=== PATIENT | male | born 1955 | race Asian ===

== ENCOUNTER 2022-04-12 12:58 | Emergency (ER) | payer OTHER ==
[~2022-04-12] VITALS: Ht 147.3 cm; Wt 50.0 kg
[2022-04-12] MEDS ORDERED: CARV6 PO (13:10)
[2022-04-12] MEDS ORDERED: AMLO-258 PO (13:10)
[2022-04-12] MEDS ORDERED: TRAZ-257 PO (13:10)
[2022-04-12] MEDS ORDERED: ASPI-1450 PO (13:10)
[2022-04-12] MEDS ORDERED: SIMV-259 PO (13:10)
[2022-04-12] MEDS ORDERED: MEGE40TA33 PO (13:10)
[2022-04-12] MEDS ORDERED: CHOL500013 PO (13:10)
[2022-04-12 13:52] LABS: BASOPHILS % (AUTO) 0.3 % (0.0-2.0); EOSINOPHILS % (AUTO) 2.3 % (1.0-6.0); HEMATOCRIT 43.4 % (41-53); HEMOGLOBIN 14.2 g/dL (13.5-17.5); LYMPHOCYTES # (AUTO) 1.5 K/uL (1.0-4.8); LYMPHOCYTES % (AUTO) 37.2 % (22.0-44.0); MEAN CORPUSCULAR HEMOGLOBIN 31.5 pg (26.0-34.0); MEAN CORPUSCULAR HGB CONC 32.7 G/dL (31.0-37.0); MEAN CORPUSCULAR VOLUME 96 fL (80-100); MONOCYTES # (AUTO) 0.3 K/uL (0.1-1.0); MONOCYTES % (AUTO) 6.8 % (2.0-9.0); NEUTROPHILS # (AUTO) 2.1 K/uL (1.8-7.7); NEUTROPHILS % (AUTO) 53.4 % (40.0-70.0); PLATELET COUNT (AUTO) 193 K/uL (150-450); RED CELL DISTRIBUTION WIDTH 13.8 % (11.5-14.5)
[2022-04-12 14:09] LABS: ANION GAP 5 mmol/L (8-16); CALCIUM, TOTAL 9.1 mg/dL (8.8-10.5); CARBON DIOXIDE 28 mmol/L (22-29); CHLORIDE 105 mmol/L (98-107); GLOMERULAR FILTR. RATE CALC > 60 mL/min (>60); GLUCOSE,RANDOM 97 mg/dL (70-110); POTASSIUM 3.9 mmol/L (3.5-5.1); SODIUM SERUM 138 mmol/L (136-145); UREA NITROGEN, BLOOD 16 mg/dL (7-18)
[2022-04-12 14:24] LABS: B-TYPE NATRIURETIC PEPTIDE 35 pg/mL (0-100)
[2022-04-12 14:39] LABS: ALANINE AMINOTRANSFERASE 33 U/L (12-78); ALKALINE PHOSPHATASE 79 U/L (46-116); ASPARTATE AMINOTRANSFERASE 21 U/L (15-37); BILIRUBIN,TOTAL 0.9 mg/dL (0.1-1.0); CREATINE KINASE, TOTAL ONLY 168 U/L (39-308); TOTAL PROTEIN, SERUM 8.3 g/dL (6.4-8.2)
[2022-04-12] MEDS ORDERED: ACETAMINOPHEN 325 MG TABLET PO ONE (16:00)
[2022-04-12] MEDS ORDERED: CARV3 PO (16:03)
[2022-04-12] MEDS ORDERED: LISI20TA24 PO (16:03)
[2022-04-12] MEDS ORDERED: ASPI-1444 PO (16:03)
[2022-04-12] MEDS ORDERED: AmLODIPine BESYLATE 5 MG TABLET PO ONE (16:15)
[2022-04-12 17:28] LABS: APPEARANCE,URINE CLEAR (CLEAR); BILIRUBIN,URINE NEGATIVE (NEGATIVE); GLUCOSE, URINE (UA) NEGATIVE (NEGATIVE); KETONES,URINE NEGATIVE (NEGATIVE); LEUKOCYTE ESTERASE ,URINE NEGATIVE (NEGATIVE); NITRATE,URINE NEGATIVE (NEGATIVE); OCCULT BLOOD,URINE NEGATIVE (NEGATIVE); PROTEIN,URINE NEGATIVE (NEGATIVE); SPECIFIC GRAVITIY, URINE 1.014 (1.003-1.030); UROBILINOGEN,URINE <=1.0 mg/dL (<=1.0)
[2022-04-12 18:03] VITALS: BP 151/97
[2022-04-12] MEDS ORDERED: AMLO-257 PO (18:19)
== END 2022-04-12 18:30 | disposition home or self-care (01) ==
LOC: EMS 13:03
DX: I10 Essential (primary) hypertension (principal); R42 Dizziness and giddiness; E78.00 Pure hypercholesterolemia, unspecified
CPT/HCPCS: 70450; 71045; 80053; 81003; 82550; 83880; 84484; 85025; 93005; 99285; 36415-L1; 36415-TC

== ENCOUNTER 2023-04-08 17:47 | Inpatient (IN) | payer MEDICAID, OTHER ==
[~2023-04-08] VITALS: Ht 153.7 cm; Wt 50.2 kg
[~2023-04-08 17:47] MED LIST: AMLO-257 PO; AMLO-258 PO; ASPI-1444 PO; CARV3 PO; CHOL500013 PO; LISI20TA24 PO; MEGE40TA33 PO; SIMV-259 PO; TRAZ-257 PO
[2023-04-08 19:07] LABS: BASOPHILS % (AUTO) 0.9 % (0.0-2.0); EOSINOPHILS % (AUTO) 4.2 % (1.0-6.0); HEMOGLOBIN 11.9 g/dL (13.5-17.5); LYMPHOCYTES % (AUTO) 22.2 % (22.0-44.0); MEAN CORPUSCULAR HEMOGLOBIN 31.7 pg (26.0-34.0); MEAN CORPUSCULAR HGB CONC 34.2 G/dL (31.0-37.0); MEAN CORPUSCULAR VOLUME 93 fL (80-100); MONOCYTES # (AUTO) 0.4 K/uL (0.1-1.0); NEUTROPHILS # (AUTO) 2.9 K/uL (1.8-7.7); NEUTROPHILS % (AUTO) 63.7 % (40.0-70.0); PLATELET COUNT (AUTO) 185 K/uL (150-450); RED BLOOD CELL COUNT(AUTO) 3.76 MIL/uL (4.50-5.90); RED CELL DISTRIBUTION WIDTH 13.1 % (11.5-14.5); WHITE BLOOD COUNT (AUTO) 4.6 K/uL (4.5-11.0)
[2023-04-08 19:16] LABS: ANION GAP 8 mmol/L (8-16); CALCIUM, TOTAL 8.5 mg/dL (8.8-10.5); CARBON DIOXIDE 26 mmol/L (22-29); CHLORIDE 107 mmol/L (98-107); CREATININE 0.82 mg/dL (0.60-1.30); GLOMERULAR FILTR. RATE CALC > 60 mL/min (>60); GLUCOSE,RANDOM 107 mg/dL (70-110); POTASSIUM 3.7 mmol/L (3.5-5.1); SODIUM SERUM 141 mmol/L (136-145); UREA NITROGEN, BLOOD 13 mg/dL (7-18)
[2023-04-08 19:20] LABS: PROTHROMBIN TIME 10.7 SEC (9.4-11.6)
[2023-04-08 19:24] LABS: TROPONIN I-HIGH SENSITIVITY 12 ng/L (<76)
[2023-04-08 19:27] LABS: ALANINE AMINOTRANSFERASE 31 U/L (12-78); ALBUMIN 3.4 g/dL (3.4-5.0); ALKALINE PHOSPHATASE 101 U/L (46-116); ASPARTATE AMINOTRANSFERASE 30 U/L (15-37); BILIRUBIN,TOTAL 0.6 mg/dL (0.1-1.0); CREATINE KINASE, TOTAL ONLY 708 U/L (39-308); TOTAL PROTEIN, SERUM 6.6 g/dL (6.4-8.2)
[2023-04-08 19:35] LABS: B-TYPE NATRIURETIC PEPTIDE 17 pg/mL (0-100)
[2023-04-08 21:32] LABS: COVID AG,FIA SOURCE NASAL SWAB
[2023-04-08 21:34] LABS: SARS-COV2 (COVID) ANTIGEN,FIA Negative (Negative)
[2023-04-09] MEDS ORDERED: LevETIRAcetam 1,000 MG in DEXTROSE 5%-WATER 100 ML IV ONE (00:15)
[2023-04-09] MEDS ORDERED: MANNITOL 25%-12.5 GM/50 ML VIAL IVP ONE (01:00)
[2023-04-09] MEDS ORDERED: ONDANSETRON HCL 4 MG/2 ML VIAL IVP PRN (01:00)
[2023-04-09] MEDS ORDERED: DEXAMETHASONE SOD PHOS 4 MG/ML 5 ML VIAL IVP ONE (01:00)
[2023-04-09] MEDS ORDERED: HALOPERIDOL LACTATE 5 MG/ML VIAL IM ONE ×2 (06:15→21:15)
[2023-04-09] MEDS: DOCUSATE SODIUM 100 MG CAPSULE PO SCH ×2 (08:25→20:17)
[2023-04-09] MEDS ORDERED: SODIUM CHLORIDE 0.9% 1,000 ML IV ONE (08:30)
[2023-04-09] MEDS: FAMOTIDINE 20 MG/2 ML VIAL IVP SCH ×2 (11:47→20:18)
[2023-04-09] MEDS ORDERED: ESCI-8 PO (15:51)
[2023-04-09 16:00] VITALS: BP 118/83; PULSE 85; RESP 14; TEMP 98.2
[2023-04-09] MEDS ORDERED: SODIUM CHLORIDE 0.9% 250 ML IV ONE (16:11)
[2023-04-09] MEDS: LevETIRAcetam 500 MG in DEXTROSE 5%-WATER 100 ML IV SCH (16:23)
[2023-04-09 17:36] LABS: INR 1.1 (0.9-1.1); PROTHROMBIN TIME 11.4 SEC (9.4-11.6)
[2023-04-09 20:00] VITALS: BP 141/80; PULSE 88; RESP 20; TEMP 98.4
[2023-04-09] MEDS: ACETAMINOPHEN 325 MG TABLET PO PRN (20:17)
[2023-04-09] MEDS ORDERED: CHLORHEXIDINE GLUCONATE 2% TOWELETTE [2'S/6'S] TP SCH (22:00)
[2023-04-10] VITALS: BP 129/86; PULSE 77; RESP 13; TEMP 98.5
[2023-04-10] MEDS: LevETIRAcetam 500 MG in DEXTROSE 5%-WATER 100 ML IV SCH ×2 (00:36→13:10)
[2023-04-10 04:00] VITALS: BP 138/99; PULSE 86; RESP 19; TEMP 98
[2023-04-10 06:47] LABS: BASOPHILS % (AUTO) 0.3 % (0.0-2.0); EOSINOPHILS % (AUTO) 1.9 % (1.0-6.0); HEMATOCRIT 33.1 % (41-53); HEMOGLOBIN 11.6 g/dL (13.5-17.5); LYMPHOCYTES # (AUTO) 1.5 K/uL (1.0-4.8); LYMPHOCYTES % (AUTO) 37.1 % (22.0-44.0); MEAN CORPUSCULAR HEMOGLOBIN 32.5 pg (26.0-34.0); MEAN CORPUSCULAR VOLUME 93 fL (80-100); MONOCYTES # (AUTO) 0.3 K/uL (0.1-1.0); MONOCYTES % (AUTO) 8.2 % (2.0-9.0); NEUTROPHILS # (AUTO) 2.1 K/uL (1.8-7.7); NEUTROPHILS % (AUTO) 52.5 % (40.0-70.0); PLATELET COUNT (AUTO) 184 K/uL (150-450); RED BLOOD CELL COUNT(AUTO) 3.57 MIL/uL (4.50-5.90); RED CELL DISTRIBUTION WIDTH 13.3 % (11.5-14.5)
[2023-04-10 07:02] LABS: ANION GAP 10 mmol/L (8-16); CALCIUM, TOTAL 8.3 mg/dL (8.8-10.5); CARBON DIOXIDE 23 mmol/L (22-29); CHLORIDE 107 mmol/L (98-107); CREATININE 0.78 mg/dL (0.60-1.30); GLOMERULAR FILTR. RATE CALC > 60 mL/min (>60); GLUCOSE,RANDOM 83 mg/dL (70-110); POTASSIUM 3.3 mmol/L (3.5-5.1); SODIUM SERUM 140 mmol/L (136-145); UREA NITROGEN, BLOOD 11 mg/dL (7-18)
[2023-04-10 08:00] VITALS: BP 148/84; PULSE 72; RESP 12; TEMP 98.8
[2023-04-10] MEDS ORDERED: POTASSIUM CHL 10 MEQ/WATER 50 ML IV PRN (08:30)
[2023-04-10] MEDS ORDERED: POTASSIUM CHLORIDE 20 MEQ ER TABLET PO PRN (08:30)
[2023-04-10] MEDS: FAMOTIDINE 20 MG/2 ML VIAL IVP SCH ×2 (09:05→21:15)
[2023-04-10] MEDS: DOCUSATE SODIUM 100 MG CAPSULE PO SCH ×2 (09:05→21:15)
[2023-04-10] MEDS ORDERED: POTASSIUM CHLORIDE 10% 40 MEQ/30 ML LIQUID UDCUP PO PRN (09:30)
[2023-04-10 12:00] VITALS: BP 131/89; PULSE 89; RESP 18; TEMP 97.9
[2023-04-10 16:00] VITALS: BP 140/88; PULSE 78; RESP 11; TEMP 98.3
[2023-04-10 20:00] VITALS: BP 140/93; PULSE 94; RESP 15; TEMP 98.7
[2023-04-11] VITALS: BP 138/90; PULSE 72; RESP 24; TEMP 98.5
[2023-04-11] MEDS: LevETIRAcetam 500 MG in DEXTROSE 5%-WATER 100 ML IV SCH ×2 (01:11→12:48)
[2023-04-11 04:00] VITALS: BP 140/89; PULSE 62; PULSE 63; RESP 11; TEMP 98.2
[2023-04-11 06:37] LABS: BASOPHILS % (AUTO) 0.4 % (0.0-2.0); EOSINOPHILS % (AUTO) 3.1 % (1.0-6.0); HEMATOCRIT 36.3 % (41-53); HEMOGLOBIN 12.4 g/dL (13.5-17.5); LYMPHOCYTES # (AUTO) 1.1 K/uL (1.0-4.8); LYMPHOCYTES % (AUTO) 34.1 % (22.0-44.0); MEAN CORPUSCULAR HEMOGLOBIN 31.7 pg (26.0-34.0); MEAN CORPUSCULAR HGB CONC 34.2 G/dL (31.0-37.0); MEAN CORPUSCULAR VOLUME 93 fL (80-100); MONOCYTES # (AUTO) 0.3 K/uL (0.1-1.0); MONOCYTES % (AUTO) 8.4 % (2.0-9.0); NEUTROPHILS # (AUTO) 1.7 K/uL (1.8-7.7); PLATELET COUNT (AUTO) 202 K/uL (150-450); RED BLOOD CELL COUNT(AUTO) 3.92 MIL/uL (4.50-5.90); RED CELL DISTRIBUTION WIDTH 13.1 % (11.5-14.5); WHITE BLOOD COUNT (AUTO) 3.1 K/uL (4.5-11.0)
[2023-04-11 06:47] LABS: CALCIUM, TOTAL 8.8 mg/dL (8.8-10.5); CARBON DIOXIDE 24 mmol/L (22-29); CHLORIDE 103 mmol/L (98-107); CREATININE 0.77 mg/dL (0.60-1.30); GLOMERULAR FILTR. RATE CALC > 60 mL/min (>60); GLUCOSE,RANDOM 90 mg/dL (70-110); POTASSIUM 3.8 mmol/L (3.5-5.1); UREA NITROGEN, BLOOD 10 mg/dL (7-18)
[2023-04-11 06:54] LABS: ANION GAP 12 mmol/L (8-16); SODIUM SERUM 139 mmol/L (136-145)
[2023-04-11 08:00] VITALS: BP 135/82; PULSE 74; RESP 12; TEMP 98.4
[2023-04-11] MEDS: DOCUSATE SODIUM 100 MG CAPSULE PO SCH ×2 (08:31→21:00)
[2023-04-11] MEDS: FAMOTIDINE 20 MG/2 ML VIAL IVP SCH ×2 (08:32→22:30)
[2023-04-11 12:00] VITALS: BP 146/91; PULSE 77; RESP 18; TEMP 98.2
[2023-04-11 16:00] VITALS: BP 130/82; PULSE 108; RESP 16; TEMP 98.2
[2023-04-11] MEDS: LORazepam 2 MG/ML VIAL IVP PRN (19:35)
[2023-04-11 22:41] VITALS: BP 108/77; PULSE 75; RESP 16; TEMP 98.1
[2023-04-12] VITALS: BP 128/92; PULSE 85; RESP 16; TEMP 97.6
[2023-04-12] MEDS ORDERED: SODIUM CHLORIDE 0.9% 250 ML IV ONE (01:10)
[2023-04-12] MEDS: LevETIRAcetam 500 MG in DEXTROSE 5%-WATER 100 ML IV SCH ×2 (01:15→13:10)
[2023-04-12 04:30] VITALS: BP 121/81; PULSE 74; RESP 16; TEMP 97.9
[2023-04-12 07:23] VITALS: BP 116/83; PULSE 84; RESP 18; TEMP 98
[2023-04-12] MEDS: DOCUSATE SODIUM 100 MG CAPSULE PO SCH ×2 (08:41→21:37)
[2023-04-12] MEDS: FAMOTIDINE 20 MG/2 ML VIAL IVP SCH ×2 (08:41→21:37)
[2023-04-12 11:37] VITALS: BP 124/95; PULSE 71; RESP 20; TEMP 98
[2023-04-12 15:12] VITALS: BP 134/82; PULSE 93; RESP 18; TEMP 98
[2023-04-12 19:41] VITALS: BP 128/82; PULSE 98; RESP 17; TEMP 97.9
[2023-04-13 00:10] VITALS: BP 129/89; PULSE 85; RESP 20; TEMP 97.4
[2023-04-13 04:17] VITALS: BP 111/68; PULSE 74; RESP 16; TEMP 98.4
[2023-04-13] MEDS: DOCUSATE SODIUM 100 MG CAPSULE PO SCH ×2 (08:12→21:57)
[2023-04-13] MEDS: LevETIRAcetam 500 MG TABLET PO SCH (08:16)
[2023-04-13 08:18] VITALS: BP 158/89; PULSE 108; RESP 18; TEMP 98
[2023-04-13] MEDS: FAMOTIDINE 20 MG/2 ML VIAL IVP SCH ×2 (09:00→21:00)
[2023-04-13 12:03] VITALS: BP 134/92; PULSE 101; RESP 18; TEMP 97.9
[2023-04-13] MEDS: HALOPERIDOL LACTATE 5 MG/ML VIAL IM PRN (12:55)
[2023-04-13 16:26] VITALS: BP 128/91; PULSE 97; RESP 18; TEMP 97.7
[2023-04-13] MEDS: ACETAMINOPHEN 325 MG TABLET PO PRN (16:34)
[2023-04-13 19:36] VITALS: BP 129/83; PULSE 95; RESP 19; TEMP 97.5
[2023-04-13] MEDS: FAMOTIDINE 20 MG TABLET PO SCH (23:37)
[2023-04-14 00:25] VITALS: BP 123/87; PULSE 82; RESP 18; TEMP 97.6
[2023-04-14] MEDS: ACETAMINOPHEN 325 MG TABLET PO PRN (01:01)
[2023-04-14 04:09] VITALS: BP 136/87; PULSE 78; RESP 18; TEMP 97.5
[2023-04-14 08:37] VITALS: BP 150/56; PULSE 76; RESP 19; TEMP 98.2
[2023-04-14] MEDS: DOCUSATE SODIUM 100 MG CAPSULE PO SCH ×2 (08:57→21:33)
[2023-04-14] MEDS: FAMOTIDINE 20 MG TABLET PO SCH ×2 (08:57→21:33)
[2023-04-14] MEDS: LevETIRAcetam 500 MG TABLET PO SCH (08:57)
[2023-04-14 11:20] VITALS: BP 134/69; PULSE 94; RESP 18; TEMP 98
[2023-04-14 15:19] VITALS: BP 112/74; PULSE 86; RESP 18; TEMP 98
[2023-04-14 20:10] VITALS: BP 137/81; PULSE 86; PULSE 88; RESP 18; TEMP 98.6
[2023-04-15] VITALS (7 sets, daily range): BP systolic 98–133; BP diastolic 60–93; PULSE 66–85; RESP 18–19; TEMP 97.4–98.2
[2023-04-15] MEDS: DOCUSATE SODIUM 100 MG CAPSULE PO SCH ×2 (08:08→22:02)
[2023-04-15] MEDS: FAMOTIDINE 20 MG TABLET PO SCH ×2 (08:08→22:02)
[2023-04-15] MEDS: LevETIRAcetam 500 MG TABLET PO SCH (08:08)
[2023-04-16 00:28] VITALS: BP 112/73; PULSE 78; RESP 18; TEMP 97.8
[2023-04-16 04:45] VITALS: BP 114/71; PULSE 79; RESP 18; TEMP 98.3
[2023-04-16 07:16] VITALS: BP 118/72; PULSE 82; RESP 18; TEMP 98.2
[2023-04-16] MEDS: FAMOTIDINE 20 MG TABLET PO SCH ×2 (08:56→21:07)
[2023-04-16] MEDS: LevETIRAcetam 500 MG TABLET PO SCH (08:56)
[2023-04-16] MEDS: DOCUSATE SODIUM 100 MG CAPSULE PO SCH ×2 (08:56→21:00)
[2023-04-16 15:18] VITALS: BP 122/74; PULSE 78; RESP 20; TEMP 97.9
[2023-04-16] MEDS ORDERED: SODIUM CHLORIDE 0.9% 2,000 ML ONE (15:40)
[2023-04-16 19:28] VITALS: BP 120/63; PULSE 71; RESP 20; TEMP 98.2
[2023-04-16] MEDS: HALOPERIDOL LACTATE 5 MG/ML VIAL IM PRN (21:52)
[2023-04-17 03:59] VITALS: BP 112/80; PULSE 61; RESP 18; TEMP 98
[2023-04-17 07:41] VITALS: BP 112/67; PULSE 84; RESP 20; TEMP 97.8
[2023-04-17] MEDS: DOCUSATE SODIUM 100 MG CAPSULE PO SCH ×2 (08:10→20:49)
[2023-04-17] MEDS: LevETIRAcetam 500 MG TABLET PO SCH (08:10)
[2023-04-17] MEDS: FAMOTIDINE 20 MG TABLET PO SCH ×2 (08:10→20:49)
[2023-04-17] MEDS: HALOPERIDOL LACTATE 5 MG/ML VIAL IM PRN (10:16)
[2023-04-17] MEDS: LORazepam 2 MG/ML VIAL IVP PRN (10:16)
[2023-04-17 15:56] VITALS: BP 121/89; PULSE 102; RESP 20; TEMP 98.3
[2023-04-17 19:12] VITALS: BP 132/50; PULSE 82; RESP 20; TEMP 98.2
[2023-04-18 04:15] VITALS: BP 140/93; PULSE 80; RESP 18; TEMP 97.8
[2023-04-18] MEDS: LevETIRAcetam 500 MG TABLET PO SCH (08:36)
[2023-04-18] MEDS: DOCUSATE SODIUM 100 MG CAPSULE PO SCH ×2 (08:36→20:53)
[2023-04-18] MEDS: FAMOTIDINE 20 MG TABLET PO SCH ×2 (08:36→20:53)
[2023-04-18 08:54] VITALS: BP 106/75; PULSE 77; RESP 18; TEMP 97.7
[2023-04-18] MEDS: HALOPERIDOL LACTATE 5 MG/ML VIAL IM PRN (13:01)
[2023-04-18 18:42] VITALS: BP 122/86; PULSE 80; RESP 20; TEMP 98
[2023-04-18 19:25] VITALS: BP 120/83; PULSE 71; RESP 18; TEMP 98.1
[2023-04-19 04:15] VITALS: BP 121/83; PULSE 65; RESP 18; TEMP 97.8
[2023-04-19 08:03] VITALS: BP 135/88; PULSE 77; RESP 18; TEMP 97.7
[2023-04-19] MEDS: LevETIRAcetam 500 MG TABLET PO SCH (08:22)
[2023-04-19] MEDS: FAMOTIDINE 20 MG TABLET PO SCH ×2 (08:22→20:37)
[2023-04-19] MEDS: DOCUSATE SODIUM 100 MG CAPSULE PO SCH ×2 (08:23→20:37)
[2023-04-19 15:57] VITALS: BP 130/86; PULSE 80; RESP 18; TEMP 97.6
[2023-04-19 19:16] VITALS: BP 122/83; PULSE 83; RESP 18; TEMP 98
[2023-04-20 04:09] VITALS: BP 115/70; PULSE 78; RESP 18; TEMP 98.4
[2023-04-20 07:35] VITALS: BP 105/81; PULSE 80; RESP 18; TEMP 98
[2023-04-20] MEDS: FAMOTIDINE 20 MG TABLET PO SCH ×2 (08:52→19:56)
[2023-04-20] MEDS: DOCUSATE SODIUM 100 MG CAPSULE PO SCH ×2 (08:52→19:56)
[2023-04-20] MEDS: LevETIRAcetam 500 MG TABLET PO SCH (08:52)
[2023-04-20 15:02] LABS: BASOPHILS % (AUTO) 0.7 % (0.0-2.0); EOSINOPHILS % (AUTO) 4.9 % (1.0-6.0); HEMATOCRIT 39.7 % (41-53); HEMOGLOBIN 13.3 g/dL (13.5-17.5); LYMPHOCYTES # (AUTO) 1.2 K/uL (1.0-4.8); LYMPHOCYTES % (AUTO) 33.1 % (22.0-44.0); MEAN CORPUSCULAR HEMOGLOBIN 31.8 pg (26.0-34.0); MEAN CORPUSCULAR HGB CONC 33.4 G/dL (31.0-37.0); MEAN CORPUSCULAR VOLUME 95 fL (80-100); MONOCYTES # (AUTO) 0.3 K/uL (0.1-1.0); MONOCYTES % (AUTO) 8.1 % (2.0-9.0); NEUTROPHILS % (AUTO) 53.2 % (40.0-70.0); PLATELET COUNT (AUTO) 237 K/uL (150-450); RED BLOOD CELL COUNT(AUTO) 4.17 MIL/uL (4.50-5.90); RED CELL DISTRIBUTION WIDTH 13.5 % (11.5-14.5); WHITE BLOOD COUNT (AUTO) 3.7 K/uL (4.5-11.0)
[2023-04-20 15:11] LABS: ANION GAP 7 mmol/L (8-16); CALCIUM, TOTAL 9.2 mg/dL (8.8-10.5); CARBON DIOXIDE 29 mmol/L (22-29); CHLORIDE 103 mmol/L (98-107); GLOMERULAR FILTR. RATE CALC > 60 mL/min (>60); GLUCOSE,RANDOM 99 mg/dL (70-110); SODIUM SERUM 139 mmol/L (136-145); UREA NITROGEN, BLOOD 16 mg/dL (7-18)
[2023-04-20 15:22] VITALS: BP 154/89; PULSE 67; RESP 18; TEMP 98
[2023-04-20 20:00] VITALS: BP 134/87; PULSE 87; RESP 20; TEMP 97.9
[2023-04-20] MEDS: LORazepam 2 MG/ML VIAL IVP PRN (21:22)
[2023-04-21] VITALS (7 sets, daily range): BP systolic 108–155; BP diastolic 69–110; PULSE 84–97; RESP 16–20; TEMP 97.8–98.3
[2023-04-21] MEDS: DOCUSATE SODIUM 100 MG CAPSULE PO SCH ×2 (08:05→20:48)
[2023-04-21] MEDS: LevETIRAcetam 500 MG TABLET PO SCH (08:05)
[2023-04-21] MEDS: FAMOTIDINE 20 MG TABLET PO SCH ×2 (08:05→20:48)
[2023-04-22 05:00] VITALS: BP 109/70; PULSE 79; RESP 18; TEMP 98
[2023-04-22 07:46] VITALS: BP 123/83; PULSE 60; RESP 18; TEMP 97.6
[2023-04-22] MEDS: DOCUSATE SODIUM 100 MG CAPSULE PO SCH ×2 (08:37→21:49)
[2023-04-22] MEDS: FAMOTIDINE 20 MG TABLET PO SCH ×2 (08:37→21:48)
[2023-04-22] MEDS: LevETIRAcetam 500 MG TABLET PO SCH (08:37)
[2023-04-22 15:19] VITALS: BP 117/81; PULSE 100; RESP 18; TEMP 97.9
[2023-04-22 20:09] VITALS: BP 119/69; PULSE 65; RESP 18; TEMP 98
[2023-04-23 04:46] VITALS: BP 114/76; PULSE 70; RESP 18; TEMP 98.1
[2023-04-23] MEDS: DOCUSATE SODIUM 100 MG CAPSULE PO SCH ×2 (08:08→21:17)
[2023-04-23] MEDS: LevETIRAcetam 500 MG TABLET PO SCH (08:08)
[2023-04-23] MEDS: FAMOTIDINE 20 MG TABLET PO SCH ×2 (08:08→21:17)
[2023-04-23 08:13] VITALS: BP 109/69; PULSE 63; RESP 18; TEMP 97.9
[2023-04-23 15:50] VITALS: BP 111/82; PULSE 85; RESP 18; TEMP 97.5
[2023-04-23 20:30] VITALS: BP 147/91; PULSE 81; RESP 20; TEMP 98.8
[2023-04-24] MEDS: ACETAMINOPHEN 325 MG TABLET PO PRN (02:50)
[2023-04-24 03:31] VITALS: BP 127/89; PULSE 67; RESP 18; TEMP 98.4
[2023-04-24 07:56] VITALS: BP 123/93; PULSE 96; RESP 18; TEMP 97.7
[2023-04-24] MEDS: LevETIRAcetam 500 MG TABLET PO SCH (08:06)
[2023-04-24] MEDS: DOCUSATE SODIUM 100 MG CAPSULE PO SCH ×2 (08:06→20:02)
[2023-04-24] MEDS: FAMOTIDINE 20 MG TABLET PO SCH ×2 (08:06→20:01)
[2023-04-24] MEDS: HALOPERIDOL LACTATE 5 MG/ML VIAL IM PRN (15:17)
[2023-04-24 15:30] VITALS: BP 125/85; PULSE 94; RESP 18; TEMP 98
[2023-04-24 19:34] VITALS: BP 128/80; PULSE 99; RESP 18; TEMP 98.5
[2023-04-25 04:42] VITALS: BP 125/87; PULSE 73; RESP 18; TEMP 97.7
[2023-04-25 07:20] VITALS: BP 135/91; PULSE 94; RESP 18; TEMP 98.2
[2023-04-25] MEDS: FAMOTIDINE 20 MG TABLET PO SCH ×2 (07:39→20:03)
[2023-04-25] MEDS: LevETIRAcetam 500 MG TABLET PO SCH (07:41)
[2023-04-25] MEDS: DOCUSATE SODIUM 100 MG CAPSULE PO SCH ×2 (07:41→20:03)
[2023-04-25 15:58] VITALS: BP 132/92; PULSE 82; RESP 18; TEMP 98.2
[2023-04-25 19:30] VITALS: BP 134/94; PULSE 86; RESP 20; TEMP 97.5
[2023-04-26 04:30] VITALS: BP 149/86; PULSE 97; RESP 20; TEMP 98.6
[2023-04-26 07:33] LABS: BASOPHILS % (AUTO) 0.4 % (0.0-2.0); EOSINOPHILS % (AUTO) 3.5 % (1.0-6.0); HEMATOCRIT 39.5 % (41-53); HEMOGLOBIN 13.1 g/dL (13.5-17.5); LYMPHOCYTES % (AUTO) 33.4 % (22.0-44.0); MEAN CORPUSCULAR HEMOGLOBIN 31.3 pg (26.0-34.0); MEAN CORPUSCULAR HGB CONC 33.1 G/dL (31.0-37.0); MEAN CORPUSCULAR VOLUME 95 fL (80-100); MONOCYTES # (AUTO) 0.2 K/uL (0.1-1.0); MONOCYTES % (AUTO) 8.2 % (2.0-9.0); NEUTROPHILS # (AUTO) 1.6 K/uL (1.8-7.7); NEUTROPHILS % (AUTO) 54.5 % (40.0-70.0); PLATELET COUNT (AUTO) 214 K/uL (150-450); RED BLOOD CELL COUNT(AUTO) 4.18 MIL/uL (4.50-5.90); RED CELL DISTRIBUTION WIDTH 13.8 % (11.5-14.5); WHITE BLOOD COUNT (AUTO) 2.9 K/uL (4.5-11.0)
[2023-04-26 07:45] LABS: ANION GAP 8 mmol/L (8-16); CARBON DIOXIDE 27 mmol/L (22-29); CHLORIDE 106 mmol/L (98-107); CREATININE 0.64 mg/dL (0.60-1.30); GLOMERULAR FILTR. RATE CALC > 60 mL/min (>60); GLUCOSE,RANDOM 97 mg/dL (70-110); POTASSIUM 3.8 mmol/L (3.5-5.1); SODIUM SERUM 141 mmol/L (136-145); UREA NITROGEN, BLOOD 11 mg/dL (7-18)
[2023-04-26 08:05] VITALS: BP 138/97; PULSE 80; RESP 19; TEMP 98
[2023-04-26] MEDS: LevETIRAcetam 500 MG TABLET PO SCH (08:20)
[2023-04-26] MEDS: FAMOTIDINE 20 MG TABLET PO SCH ×2 (08:20→21:18)
[2023-04-26] MEDS: DOCUSATE SODIUM 100 MG CAPSULE PO SCH ×3 (08:20→21:18)
[2023-04-26 13:00] VITALS: BP 135/81; PULSE 79; RESP 19; TEMP 98.1
[2023-04-26 16:12] VITALS: BP 142/82; PULSE 72; RESP 19; TEMP 98
[2023-04-26 19:45] VITALS: BP 107/69; PULSE 91; RESP 18; TEMP 97.6
[2023-04-27 05:00] VITALS: BP 135/88; PULSE 88; RESP 20; TEMP 97.8
[2023-04-27 07:26] VITALS: BP 113/73; PULSE 79; RESP 18; TEMP 97.2
[2023-04-27] MEDS: DOCUSATE SODIUM 100 MG CAPSULE PO SCH ×2 (08:46→23:27)
[2023-04-27] MEDS: LevETIRAcetam 500 MG TABLET PO SCH (08:46)
[2023-04-27] MEDS: FAMOTIDINE 20 MG TABLET PO SCH ×2 (08:46→23:27)
[2023-04-27 14:58] VITALS: BP 121/72; PULSE 70; RESP 18; TEMP 97.3
[2023-04-27 20:00] VITALS: BP 125/77; PULSE 87; RESP 20; TEMP 97.6
[2023-04-28 05:05] VITALS: BP 129/89; PULSE 83; RESP 20; TEMP 97.7
[2023-04-28] MEDS: FAMOTIDINE 20 MG TABLET PO SCH (08:19)
[2023-04-28] MEDS: LevETIRAcetam 500 MG TABLET PO SCH (08:19)
[2023-04-28] MEDS: DOCUSATE SODIUM 100 MG CAPSULE PO SCH (08:19)
[2023-04-28 09:30] VITALS: BP 117/73; PULSE 68; RESP 20; TEMP 98.4
[2023-04-28 17:05] VITALS: BP 139/87; PULSE 73; RESP 20; TEMP 97.6
== END 2023-04-28 18:25 | DRG 44 ==
LOC: EMS 17:47 → ICUN 04-09 01:56 → ICU 04-09 10:50 → 5S 04-11 21:30 → 6S 04-16 04:25
PROVIDERS: ADMIT Internal Medicine; ATTEND Internal Medicine
PROC: 05HC33Z Insertion of Infusion Device into Left Basilic Vein, Percutaneous Approach (ICD-10-PCS; principal; 2023-04-10)
PROC: B54NZZA Ultrasonography of Left Upper Extremity Veins, Guidance (ICD-10-PCS; 2023-04-10)
DX: I62.01 Nontraumatic acute subdural hemorrhage (principal); D72.819 Decreased white blood cell count, unspecified; E87.6 Hypokalemia; E78.00 Pure hypercholesterolemia, unspecified; S42.001A Fracture of unspecified part of right clavicle, initial encounter for closed fracture; I10 Essential (primary) hypertension; G40.909 Epilepsy, unspecified, not intractable, without status epilepticus; R74.8 Abnormal levels of other serum enzymes; Z20.822 Contact with and (suspected) exposure to COVID-19; F79 Unspecified intellectual disabilities; R29.6 Repeated falls; W18.39XA Other fall on same level, initial encounter; Y93.89 Activity, other specified; Y92.89 Other specified places as the place of occurrence of the external cause; Y99.8 Other external cause status; Z75.1 Person awaiting admission to adequate facility elsewhere; Z79.899 Other long term (current) drug therapy; Z79.82 Long term (current) use of aspirin
CPT/HCPCS: 36245; 36569; 70450; 70551; 72125; 76937; 80048; 80053; 82550; 83735; 83880; 84132; 84484; 85025; 85610; 85730; 86850; 86900; 86901; 92526; 92610; 93005; 93306; 97116; 97163; 97167; 97530; 97535; 99291; G0378; J0712; J1100; J1630; J2060; J2150; J2405; J3490; J7030; J7050; J7060